=== PATIENT | female | born 1975 | race Caucasian/White ===

== ENCOUNTER 2017-06-17 07:48 | Inpatient (IN) | payer BC ==
[~2017-06-17] VITALS: Ht 154.9 cm; Wt 75.0 kg
[2017-06-17] VITALS (43 sets, daily range): BP systolic 75–151; BP diastolic 41–94; PULSE 64–141; TEMP 97.8–106
[2017-06-17] MEDS ORDERED: PRENATAL (08:32)
[2017-06-17 09:40] LABS: BASO # 0.1 (0.0-0.2); BASO % 0.5 % (0.0-2.0); EOS % 0.2 % (0-4.0); GRAN # 15.8 (1.4-6.5); GRAN % 81.1 % (42.2-75.2); HEMATOCRIT 38.5 % (37.0-47.0); HEMOGLOBIN 13.2 g/dl (12.5-16.0); LYMPH # 2.3 (1.2-3.4); LYMPH % 11.9 % (20.0-51.0); MEAN CELL VOLUME 93 fl (80.0-100.0); MEAN CORPUSCULAR HEMOGLOBIN 32 pg (27.0-31.0); MEAN CORPUSCULAR HGB CONC 34 g/dl (33.0-37.0); MEAN PLATELET VOLUME 10.4 fl (7.4-10.4); MONO # 1.1 (0.1-0.6); MONO % 5.5 % (1.7-9.3); PLATELET COUNT 262 K/mm3 (130-400); RED BLOOD COUNT 4.12 M/mm3 (4.10-5.30); REDCELL DISTRIBUTION WIDTH-CV 12.6 % (11.5-14.5)
[2017-06-18 00:15] VITALS: BP 95/56; PULSE 106; TEMP 97.8
[2017-06-18 04:50] VITALS: BP 92/58; PULSE 100; TEMP 97.4
[2017-06-18 08:02] VITALS: BP 96/53; PULSE 64
[2017-06-18 17:03] VITALS: BP 120/78; PULSE 86; TEMP 98.1
[2017-06-18 19:50] VITALS: BP 105/59; PULSE 98; TEMP 98.1
[2017-06-19 09:30] VITALS: BP 109/45; PULSE 99; TEMP 97.8
[2017-06-19 15:58] VITALS: BP 105/57; PULSE 93; TEMP 98
[2017-06-19 22:00] VITALS: BP 112/70; PULSE 86; TEMP 98.6
[2017-06-20] MEDS ORDERED: IBU800 M1 PO (09:08)
[2017-06-20] MEDS ORDERED: PERCOCET 325 MG1 TA2 PO (09:09)
[2017-06-20 10:03] VITALS: BP 117/61; PULSE 60; TEMP 97.5
[2017-06-20 15:30] VITALS: BP 124/62; PULSE 60; TEMP 97.5
== END 2017-06-20 16:50 | disposition home or self-care (01) | DRG 766 ==
LOC: LDRO 07:48 → LDR 09:15 → OB 09:15
PROVIDERS: Obstetrics & Gynecology
PROC: 10D00Z1 Extraction of Products of Conception, Low, Open Approach (ICD-10-PCS; principal; 2017-06-17)
DX: O48.0 Post-term pregnancy (principal); O76 Abnormality in fetal heart rate and rhythm complicating labor and delivery; O77.0 Labor and delivery complicated by meconium in amniotic fluid; O34.13 Maternal care for benign tumor of corpus uteri, third trimester; D25.2 Subserosal leiomyoma of uterus; O69.81X0 Labor and delivery complicated by cord around neck, without compression, not applicable or unspecified; O99.824 Streptococcus B carrier state complicating childbirth; Z3A.40 40 weeks gestation of pregnancy; Z37.0 Single live birth
CPT/HCPCS: J0690; J1885; J2270; J2370; J2400; J2405; J2540; J2590; J7060; J7120

== ENCOUNTER → 2017-07-16 | Outpatient (CLI) | payer BC ==
[~2017-07-16] MED LIST: IBU800 M1 PO; PERCOCET 325 MG1 TA2 PO; PRENATAL
== END ==
LOC: OLC 15:11
DX: Z39.1 Encounter for care and examination of lactating mother (principal); Z71.89 Other specified counseling

== ENCOUNTER → 2022-09-04 | Outpatient (CLI) | payer BC | LOC: MC.RAD 15:16 | DX: Z12.31 Encounter for screening mammogram for malignant neoplasm of breast (principal) ==

== ENCOUNTER 2023-10-16 09:15 | Outpatient (RCR) | payer BC | END 2023-10-18 | LOC: PT.GENESIS | DX: M75.21 Bicipital tendinitis, right shoulder (principal); M54.41 Lumbago with sciatica, right side; M54.42 Lumbago with sciatica, left side ==

== ENCOUNTER → 2023-10-25 | Outpatient (CLI) | payer BC | LOC: MC.RAD 11:30 | DX: Z12.31 Encounter for screening mammogram for malignant neoplasm of breast (principal) ==